=== PATIENT | male | born 1980 | race Caucasian/White ===

== ENCOUNTER → 2018-02-27 | Outpatient (CLI) | payer OTHER ==
[2018-02-27 07:20] LABS: COLLECTION METHOD DRY COLLECTION; SPECIMEN CONTAINER POLYPROPYLENE CUP; SPERM MORPHOLOGY SENT TO REFERENC LAB
[2018-02-27 08:04] LABS: COLLECTION SITE ON-SITE; DAYS ABSTINENT 2 DAYS (2-7); SEMEN TESTING TIME 720
[2018-02-27 08:05] LABS: ROUND CELL CONC. 0.4 X10^6/mL (<5.1); SA NONMOTILE CONCENTRATION 11.4 X10^6/mL; SA NONMOTILE COUNT1 120; SA NONMOTILE COUNT2 108; SA ROUND CELL COUNT1 4; SA ROUND CELL COUNT2 4
[2018-02-27 08:06] LABS: SA DILUTION CNT 1 88; SA DILUTION CNT 2 96; SA DILUTION FACTOR 2; SPERM CONCENTRATION 18.4 X10^6/mL (>12.0); TOTAL SPERM COUNT 84.6 X10^6 (>33.0)
[2018-02-27 08:07] LABS: SPERM PROGRESSION 3
[2018-02-27 08:35] LABS: PERCENT VIABLE 63 %; SEMEN VIABILITY STAINED 84; SEMEN VIABILITY UNSTAINED 141; TOTAL VIABILITY COUNT 225
[2018-02-27 08:36] LABS: PERCENT NONMOTILE SPERM 62 %; SPERM VIABILITY 77 % (>55)
== END ==
LOC: LAB 06:55
PROVIDERS: ATTEND Specialist
DX: N46.9 Male infertility, unspecified (principal)
CPT/HCPCS: 36415; 89320